=== PATIENT | female | born 1995 | race Caucasian/White ===

== ENCOUNTER 2016-05-22 08:50 | Emergency (ER) | payer OTHER ==
--- NOTE | 2016-05-22 09:05 | ED ---
Throat Pain/Nasal Congestion - HPI Summary HPI Summary: 20 female presents with complaints of a sore throat, swollen tonsils and fever that began 2 days ago. Patient was seen at [facility] urgent care where she had been treated for strep pharyngitis with PCN pills. She took 1 dose last night but was unable to take more this morning due to the pill being so large. She also states her symptoms have worsened over night. She has a history of a peritonsillar abscess that she was hospitalized for about a year and a half ago and was worried she had another one. States the left side feels to be more swollen than right. She has been taking ibuprofen last dose at 2am today. Her fever yesterday was 102.4F however since ibuprofen she has not had one. Denies any difficulty breathing due to swelling in throat. She can swallow. Denies cough, ear pain, abdominal pain, chest pain and vomiting. Admits to nausea. Pain is radiating to her ears. - History of Current Complaint Chief Complaint: EDThroatPain Hx Obtained From: Patient Onset/Duration: Sudden Onset, Lasting Days, Worse Since Severity: Moderate Associated Signs And Symptoms: Positive: Dysphagia. Negative: Drooling, Wheezing, Hoarseness Cough: None - Epiglottits Risk Factors Epiglottis Risk Factors: Negative - Allergies/Home Medications Allergies/Adverse Reactions: Allergies Allergy/AdvReac Type Severity Reaction Status Date / Time No Known Allergies Allergy Verified 01/02/15 08:25 PMH/Surg Hx/FS Hx/Imm Hx Endocrine/Hematology History: Denies: Hx Diabetes Cardiovascular History: Denies: Hx Congestive Heart Failure, Hx Hypertension GI History: Reports: Other GI Disorders - GASTRIC ULCER IN History: Denies: Hx Renal Disease EENT History: Reports: Pharyngitis, Hx Tonsillitis, Other - peritonsillar abscess 2014 - Surgical History Surgery Procedure, Year, and Place: none - Immunization History Immunizations Up to Date: Yes Infectious Disease History: No Infectious Disease History: Denies: Traveled Outside the [place] in Last 30 Days - Family History Known Family History: Positive: None - Social History Alcohol Use: Rare Substance Use Type: Reports: None Smoking Status (MU): Never Smoked Tobacco Review of Systems Positive: Fever, Chills, Fatigue Eyes: Negative Positive: Sore Throat Cardiovascular: Negative Respiratory: Negative Positive: Nausea Genitourinary: Negative Musculoskeletal: Negative Skin: Negative Positive: Headache Psychological: Normal All Other Systems Reviewed And Are Negative: Yes Physical Exam Triage Information Reviewed: Yes Vital Signs On Initial Exam: Initial Vitals Temp Pulse Resp BP Pulse Ox 97.5 F 116 18 117/87 100 05/22/16 08:52 05/22/16 08:52 05/22/16 08:52 05/22/16 08:52 05/22/16 08:52 tachycardia noted Vital Signs Reviewed: Yes Appearance: Positive: No Pain Distress - mild pain distress noted upon swallowing, Well-Nourished, Ill-Appearing Skin: Positive: Warm, Skin Color Reflects Adequate Perfusion, Dry Head/Face: Positive: Normal Head/Face Inspection Eyes: Positive: Normal, Conjunctiva Clear ENT: Positive: Normal ENT inspection, Hearing grossly normal, Pharyngeal erythema, TMs normal, Tonsillar swelling - very swollen bilateally, left more than right, Tonsillar exudate - b/l, Muffled/hoarse voice - voice sounds deep due to limiting movement of throat, Other - uvula midline, no sign of peritonsillar abscess at this time, airway patent. Negative: Nasal congestion, Nasal drainage, Trismus Dental: Positive: Cervical Lymphadenopathy - b/l. Negative: Percussion Tenderness @ Neck: Positive: Supple Respiratory/Lung Sounds: Positive: Clear to Auscultation, Breath Sounds Present Cardiovascular: Positive: Normal, RRR, Pulses are Symmetrical in both Upper and Lower Extremities Abdomen Description: Positive: Nontender, No Organomegaly, Soft Bowel Sounds: Positive: Present Musculoskeletal: Positive: Normal, Strength/ROM Intact Neurological: Positive: Normal, Sensory/Motor Intact, Alert, Oriented to Person Place, Time Psychiatric: Positive: Normal, Affect/Mood Appropriate, Anxious Diagnostics - Vital Signs Vital Signs Temp Pulse Resp BP Pulse Ox 05/22/16 08:54 97.4 F 115 18 117/87 100 05/22/16 08:52 97.5 F 116 18 117/87 100 - Laboratory Lab Statement: Any lab studies that have been ordered have been reviewed, and results considered in the medical decision making process. Re-Evaluation - Re-Evaluation First Eval Re-Evaluation Time: 10:20 Change: Improved - patient feeling better after zofran, ibuprofen, prednisone and bicillin. She is no longer nauseous and states her throat even feels somewhat better EENT Course/Dx - Course Course Of Treatment: Strep obtained and negative, however patient did take penicillin before. According to [facility] criteria, PE findings and history patient treated with Biicillin and prednisone. Patient denies MRSA history. Given prednisone and zofran to take at home. Continue ibuprofen, salt water swishes and drinking fluids. patient does not have peritonsillar abscess at this time. will be treated outpatient, is aware of worsening signs and symptoms to watch out for and to return if any occurr. follow up [facility] and ENT if needed. - Differential Diagnoses Differential Diagnoses: Otitis Media, Pharyngitis, Tonsilitis, URI/Bronchitis, Other - Diagnoses Provider Diagnoses: Tonsillitis, Pharyngitis Discharge - Discharge Plan Condition: Stable Disposition: HOME Prescriptions: Ibuprofen TAB* [Motrin TAB* 600 MG] 600 mg PO Q6H PRN #25 tab PRN Reason: Pain Ondansetron ODT TAB* [Zofran 4 MG Odt TAB*] 4 mg PO Q6H PRN #10 tab.odt PRN Reason: Nausea predniSONE TAB* [Deltasone TAB*] 40 mg PO DAILY #6 tab Patient Education Materials: Tonsillitis (ED) Forms: *School Release [facility] - Alfredo Maciel MD [Medical Doctor] - Additional Instructions: Take prescribed steroids for the next 3 days for inflammation and Zofran for nausea. You do not need to take antibiotics given to you at urgent care yesterday due to treatment while at ED. Antibiotics due decrease effectiveness of control. Recommend taking extra precaution with additional control for the next 2 weeks. Continue ibuprofen for pain, inflammation and fever. Salt water swishes are recommended. Drink plenty of fluids and get plenty of rest. If your symptoms worsen, such as increasing swelling, difficulty breathing, unable to swallow, increasing fever or vomiting please return to ED immediately. Follow up with [facility] and ENT referral if symptoms persist or to discuss tonsillectomy. Follow up with primary care provider at home.
[2016-05-22] MEDS ORDERED: Penicillin VK LIQ* 250 MG/5 ML BTL PO ONE (09:18)
[2016-05-22] MEDS ORDERED: PrednisoLONE LIQ 3 MG/ML* 15 MG/5 ML UDC PO ONE (09:18)
[2016-05-22] MEDS ORDERED: Ibuprofen ADULT LIQ* 600 MG/30 ML UDC PO ONE (09:20)
[2016-05-22] MEDS ORDERED: Ondansetron ODT TAB* 4 MG SL PRN (09:29)
[2016-05-22] MEDS ORDERED: PrednisoLONE LIQ 3 MG/ML* 15 MG/5 ML UDC ONE (09:34)
[2016-05-22] MEDS ORDERED: Ibuprofen PED LIQ* 100 MG/5 ML UDC ONE (09:35)
[2016-05-22] MEDS ORDERED: Penicillin G Benzathine 2.4MU* 2,400,000 UNITS/4 ML SYR IM ONE (09:39)
[2016-05-22] MEDS ORDERED: Ondansetron ODT TAB* 4 MG ONE (09:54)
[2016-05-22 12:47] VITALS: BP 105/61
== END 2016-05-22 10:30 | disposition home or self-care (01) ==
LOC: ED 08:50
DX: J03.90 Acute tonsillitis, unspecified (principal); J02.9 Acute pharyngitis, unspecified; R50.9 Fever, unspecified; R13.10 Dysphagia, unspecified; R51 Headache
CPT/HCPCS: 87651; 99282; A9270-GY